=== PATIENT | male | born 1965 | race African-American/Black ===

== ENCOUNTER 2021-06-11 08:05 | Emergency (ER) | payer OTHER ==
[~2021-06-11] VITALS: Ht 172.7 cm; Wt 66.0 kg
[2021-06-11 08:05] VITALS: BP 147/89
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
== END 2021-06-11 09:15 | disposition home or self-care (01) ==
LOC: ER 08:05
DX: S00.81XA Abrasion of other part of head, initial encounter (principal); S60.511A Abrasion of right hand, initial encounter; V43.52XA Car driver injured in collision with other type car in traffic accident, initial encounter; Y93.89 Activity, other specified; Y92.488 Other paved roadways as the place of occurrence of the external cause; Y99.8 Other external cause status
CPT/HCPCS: 70150; 73130; 99284-25